=== PATIENT | female | born 1955 | race Caucasian/White ===

== ENCOUNTER 2017-06-11 11:10 | Inpatient (IN) | END 2017-06-15 18:48 | disposition home or self-care (01) | DRG 387 ==

== ENCOUNTER 2017-08-26 04:05 | Inpatient (IN) | END 2017-08-31 17:20 | disposition home or self-care (01) | DRG 385 ==

== ENCOUNTER 2017-12-22 07:44 | Emergency (ER) | END 2017-12-22 14:12 | disposition home or self-care (01) ==

== ENCOUNTER 2018-04-08 14:25 | Observation (INO) | END 2018-04-10 16:29 | disposition home or self-care (01) ==

== ENCOUNTER 2018-05-19 06:35 | Emergency (ER) | payer OTHER ==
[~2018-05-19] VITALS: Ht 160 cm; Wt 66.4 kg
[~2018-05-19 06:35] MED LIST: ALBU8.5H8 INH; ATRO INHALATION; GUAI5SYR2 PO; MESA0.372 PO; PRED20TA PO
[2018-05-19 07:05] VITALS: Ht 160 cm; Wt 66.4 kg
--- NOTE | 2018-05-19 08:57 | ERD ---
ER Documentation Chief Complaint Chief Complaint R 89, fr home, sob & palpitation this am, denies chest pain HPI Patient is a 62-year-old female with no medical problems who presents with palpitations. The patient was brought in by ambulance. She felt palpitations this morning and shortness of breath. She denies pain. She was started on antibiotics on Wednesday. She has had a small cough. She has no fevers. Upon review of old medical records this is the patient's fifth visit to the ER since June 2017. She does not know the name of her primary doctor. ROS All systems reviewed and are negative except as per history of present illness. Medications Home Meds Active Scripts Albuterol Sulfate* (Proair HFA*) 8.5 Gm Hfa.aer.ad, 2 PUFF INH Q6H PRN for WHEEZING AND SOB, #1 INHALER 5 Refills Prov:BRUCE BERMUDEZ MD 04/10/18 Reported Medications Ipratropium [place]* (Atrovent HFA*) 12.9 Gm Aer.w.adap, 2 PUFF INHALATION Q12 PRN for WHEEZING AND SOB, #1 INHALER 12/22/17 Mesalamine* (Apriso*) 0.375 Gm Cap.sr.24h, 1.5 MG PO QAM, #360 TAKE 4 CAPSULE BY MOUTH EVERY MORNING 08/26/17 Discontinued Scripts Guaifenesin-Dextromethorphan* (Robitussin* DM) 100MG/10MG/5ML Syrup, 10 ML PO Q6H PRN for COUGH for 14 Days, #1 ML Prov:BRUCE BERMUDEZ MD 04/10/18 Prednisone* (Prednisone*) 20 Mg Tab, 40 MG PO DAILY for 4 Days, TAB Prov:BETSEY LOPEZ MD 12/22/17 Allergies Allergies: Coded Allergies: Penicillins (Unverified Allergy, Unknown, 05/19/18) PMhx/Soc History of Surgery: Yes (CHOLECYSTECTOMY, CESEAREAN SECTION, HAND SURGERY) Anesthesia Reaction: No Hx Neurological Disorder: No Hx Respiratory Disorders: No Hx Cardiac Disorders: No Hx Psychiatric Problems: No Hx Miscellaneous Medical Probl: Yes (COLITIS) Hx Alcohol Use: No Hx Substance Use: No Hx Tobacco Use: No FmHx Family History: No diabetes Physical Exam Vitals Vital Signs Date Temp Pulse Resp B/P (MAP) Pulse Ox O2 O2 Flow FiO2 Time Delivery Rate 05/19/18 Nasal 2 07:30 Cannula 05/19/18 98.5 87 16 116/71 98 Room Air 07:17 (86) 05/19/18 97.9 82 18 158/78 93 07:05 (104) Physical Exam Const: No acute distress Head: Atraumatic Eyes: Normal Conjunctiva ENT: Normal External Ears, Nose and Mouth. Neck: Full range of motion. No meningismus. Resp: Clear to auscultation bilaterally Cardio: Regular rate and rhythm, no murmurs Abd: Soft, non tender, non distended. Normal bowel sounds Skin: No petechiae or rashes Back: No midline or flank tenderness Ext: No cyanosis, or edema Neur: Awake and alert Psych: Normal Mood and Affect Result Diagram: 05/19/1870605/19/18706 Results 24 hrs Laboratory Tests Test 05/19/18 07:07 White Blood Count 10.6 10^3/ul Red Blood Count 5.72 10^6/ul Hemoglobin 16.3 g/dl Hematocrit 48.5 % Mean Corpuscular Volume 84.8 fl Mean Corpuscular Hemoglobin 28.5 pg Mean Corpuscular Hemoglobin Concent 33.6 g/dl Red Cell Distribution Width 13.2 % Platelet Count 311 10^3/UL Mean Platelet Volume 12.0 fl Immature Granulocytes % 0.300 % Neutrophils % 61.9 % Lymphocytes % 25.2 % Monocytes % 5.0 % Eosinophils % 6.8 % Basophils % 0.8 % Nucleated Red Blood Cells % 0.0 /100WBC Immature Granulocytes # 0.030 10^3/ul Neutrophils # 6.6 10^3/ul Lymphocytes # 2.7 10^3/ul Monocytes # 0.5 10^3/ul Eosinophils # 0.7 10^3/ul Basophils # 0.1 10^3/ul Nucleated Red Blood Cells # 0.0 10^3/ul Sodium Level 144 mmol/L Potassium Level 3.9 mmol/L Chloride Level 106 mmol/L Carbon Dioxide Level 26 mmol/L Anion Gap 12 Blood Urea Nitrogen 11 mg/dl Creatinine 0.73 mg/dl Est Glomerular Filtrat Rate mL/min > 60 mL/min Glucose Level 100 mg/dl Calcium Level 9.8 mg/dl Magnesium Level 2.0 mg/dl Troponin I < 0.012 ng/ml Thyroid Stimulating Hormone (TSH) 0.753 MIU/L Free Thyroxine 1.49 ng/dl [facility] EKG read by me: Rate/Rhythm: Regular rate and rhythm at a normal rate Intervals: Normal Impression: No evidence of ischemia or arrhythmia Chest x-ray negative per radiology. Patient is a 62-year-old female presents with palpitations and shortness of breath. Laboratory studies were normal. Chest x-ray was negative. EKG was normal. At this point I doubt acute coronary syndrome, pneumonia, pneumothorax, pulmonary embolism, or aortic dissection. I doubt cardiac arrhythmia. I believe outpatient management is appropriate but she will need close follow-up with her primary doctor within 1 week. She can return for any worsening symptoms. Departure Diagnosis: Primary Impression: Palpitations Additional Impression: Shortness of breath Condition: Fair Patient Instructions: Palpitations Referrals: Your doctor Additional Instructions: Llame al doctor negar dobson (Referral Sources) MAANA y puja ashok ДМИТРИЙ PARA DENTRO DE ASHOK SEMANA. Dgale a la secretaria que nosotros le instruimos hacer esta дмитрий.Avise o llame si sims condicin se empeora antes de la дмитрий. JUAN J MARTINEZ MD May 19, 2018 08:57
[2018-05-19 10:00] VITALS: BP 135/78; PULSE 76; RESP 20
== END 2018-05-19 10:11 | disposition home or self-care (01) ==
LOC: E/R 06:35
DX: R00.2 Palpitations (principal); R40.2142 Coma scale, eyes open, spontaneous, at arrival to emergency department; R40.2362 Coma scale, best motor response, obeys commands, at arrival to emergency department; R40.2252 Coma scale, best verbal response, oriented, at arrival to emergency department
CPT/HCPCS: 36415; 71045; 80048; 83735; 84439; 84443; 84484; 85025; 93005; Z7502

== ENCOUNTER 2018-09-13 16:45 | Emergency (ER) | payer OTHER ==
[~2018-09-13] VITALS: Ht 152.4 cm; Wt 63.3 kg
[~2018-09-13 16:45] MED LIST changes: -GUAI5SYR2 PO; -PRED20TA PO
[2018-09-13 16:51] VITALS: Ht 152.4 cm; Wt 63.3 kg
--- NOTE | 2018-09-13 17:48 | ERD ---
ER Documentation Chief Complaint Chief Complaint FEELS ANXIOUS HPI 63-year-old female, with history of anxiety in a long-term treatment with lorazepam 1 g twice daily, presents the emergency department, complaining of 1 day with worsening of anxiety after her primary doctor abruptly discontinued the lorazepam and started escitalopram 10 mg daily. The patient denies chest pain, no shortness of breath no palpitations, but she feels very anxious and she was not able to sleep last night. ROS All systems reviewed and are negative except as per history of present illness. Medications Home Meds Active Scripts Lorazepam* (Lorazepam*) 1 Mg Tablet, 1 MG PO Q8H PRN for ANXIETY, #15 TAB Prov:JAZMYN LOUIS MD 09/13/18 Albuterol Sulfate* (Proair HFA*) 8.5 Gm Hfa.aer.ad, 2 PUFF INH Q6H PRN for WHEEZING AND SOB, #1 INHALER 5 Refills Prov:BRUCE BERMUDEZ MD 04/10/18 Reported Medications Ipratropium [place]* (Atrovent HFA*) 12.9 Gm Aer.w.adap, 2 PUFF INHALATION Q12 PRN for WHEEZING AND SOB, #1 INHALER 12/22/17 Mesalamine* (Apriso*) 0.375 Gm Cap.sr.24h, 1.5 MG PO QAM, #360 TAKE 4 CAPSULE BY MOUTH EVERY MORNING 08/26/17 Allergies Allergies: Coded Allergies: Penicillins (Unverified Allergy, Unknown, 09/13/18) PMhx/Soc History of Surgery: Yes (CHOLECYSTECTOMY, CESEAREAN SECTION, HAND SURGERY) Anesthesia Reaction: No Hx Neurological Disorder: No Hx Respiratory Disorders: No Hx Cardiac Disorders: No Hx Psychiatric Problems: No Hx Miscellaneous Medical Probl: Yes (COLITIS) Hx Alcohol Use: No Hx Substance Use: No Hx Tobacco Use: No FmHx Family History: No diabetes, No coronary disease Physical Exam Vitals Vital Signs Date Temp Pulse Resp B/P (MAP) Pulse Ox O2 O2 Flow FiO2 Time Delivery Rate 09/13/18 98.1 66 22 159/67 96 Room Air 19:03 (97) 09/13/18 98.0 69 19 169/77 96 16:51 (107) Physical Exam Const: Patient looks anxious. Head: Atraumatic Eyes: Normal Conjunctiva ENT: Normal External Ears, Nose and Mouth. Neck: Full range of motion. No meningismus. Resp: Clear to auscultation bilaterally Cardio: Regular rate and rhythm, no murmurs Abd: Soft, non tender, non distended. Normal bowel sounds Skin: No petechiae or rashes Back: No midline or flank tenderness Ext: No cyanosis, or edema Neur: Awake and alert Psych: Normal Mood and Affect Results 24 hrs Current Medications Medications Dose Sig/Margarita Start Time Status Last (Trade) Ordered Route PRN Stop Time Admin Dose Reason Admin Lorazepam 2 mg ONCE ONCE 09/13/18 DC 09/13/18 (Ativan) PO 18:00 09/13/18 17:57 18:02 Procedures/MDM Differential diagnosis include but not limited to: Depression, anxiety, migraine, thyroid disease, electrolyte imbalance. Low suspicion for acute coron luc event, aortic dissection, CVA. Physical examination and clinical presentation consistent most likely with anxiety. During the ED course the patient remained stable, no new complaints. The patient received treatment with lorazepam presenting overall improvement of the symptoms. Clinical impression discussed with patient who agrees with management. The patient is stable to be treated outpatient and will be discharged home with a Rx for lorazepam, some side effects of prescribed medications (headache, rash, nausea, vomiting, diarrhea, drowsiness, habituation, bleeding, hypertension, interactions with other medications) were reviewed. The patient was instructed to follow up with the primary care provider in the next 48h. If symptoms persist, worsen or new symptoms develop, then patient should return to the ED immediately. Instructions explained and given directly by me to the patient with acknowledgment and demonstrated understanding. Disclaimer: Inadvertent spelling and grammatical errors are likely due to EHR/dictation software use and do not reflect on the overall quality of patient care. Also, please note that the electronic time recorded on this note does not necessarily reflect the actual time of the patient encounter. Departure Diagnosis: Primary Impression: Anxiety Condition: Stable Patient Instructions: Your Body's Response to Anxiety Additional Instructions: Muchas martinez por [facility] para sims servicio. Esperamos que en sims visita a la radames de emergencia sims problema medico haya sido solucionado y que se sienta mucho mejor. Para estar seguros que sims mejoria sigue en proceso, le pedimos el favor de hacer ashok arash de seguimiento medico con sims doctor primario en los proximos 2-4 temple. Lleve con usted estos documentos y las medicinas recetadas. Si daniela sintomas empeoran, NO SE ESPERE, por favor regrese a radames de emergencia INMEDIATAMENTE. En kiko que usted no tenga un mdico de atencin primaria: Llame al mdico o clnica comunitaria de referencia que aparece abajo bertha las horas de consultorio para hacer ashok arash para que le vean. CLINICAS: [facility] [phone] [id number] [facility] [phone] [facility] [phone] [facility] [phone] [facility] [phone] [address] [facility]. [phone] JAZMYN DEGROOT MD September 13, 2018 17:48
[2018-09-13] MEDS ORDERED: LORAZEPAM 1 MG TAB PO ONE (18:00)
[2018-09-13] MEDS ORDERED: LORA1TAB PO (18:57)
[2018-09-13 19:03] VITALS: BP 159/67; PULSE 66; RESP 22
== END 2018-09-13 19:06 | disposition home or self-care (01) ==
LOC: FTE 16:45
DX: F41.9 Anxiety disorder, unspecified (principal)
CPT/HCPCS: Z7502; Z7610; 99283

== ENCOUNTER 2018-10-24 15:59 | Emergency (ER) | payer OTHER ==
[~2018-10-24] VITALS: Ht 162.6 cm; Wt 62.6 kg
[~2018-10-24 15:59] MED LIST changes: +LORA1TAB PO
[2018-10-24 16:22] VITALS: Ht 162.6 cm; Wt 62.6 kg
[2018-10-24] MEDS ORDERED: KETOROLAC 15 MG INJ IV STA (18:03)
[2018-10-24] MEDS ORDERED: SOD CHLORIDE 0.9% 500 ML IV STA (18:03)
--- NOTE | 2018-10-24 18:03 | ERD ---
ER Documentation Chief Complaint Chief Complaint CHEST PAIN X3 DAYS, RADIATING TO SHOULDERS HPI 63-year-old woman complaining of palpitations left-sided chest pain x3 days, she also complains of right shoulder pain. She has had similar symptoms in the past and does admit to having anxiety, uses low-dose lorazepam daily without relief of her symptoms. She denies cough, no fevers or chills, no shortness of breath, no headache or blurry vision. Patient states the chest pain is sharp nonexertional nonradiating. ROS All systems reviewed and are negative except as per history of present illness. Medications Home Meds Active Scripts Naproxen* (Naprosyn*) 500 Mg Tablet, 500 MG PO BID PRN for PAIN AND/OR INFLAMMATION, #30 TAB Prov:BETSEY LOPEZ MD 10/24/18 Lorazepam* (Lorazepam*) 1 Mg Tablet, 1 MG PO Q8H PRN for ANXIETY, #15 TAB Prov:JAZMYN LOUIS MD 09/13/18 Albuterol Sulfate* (Proair HFA*) 8.5 Gm Hfa.aer.ad, 2 PUFF INH Q6H PRN for WHEEZING AND SOB, #1 INHALER 5 Refills Prov:BRUCE BERMUDEZ MD 04/10/18 Reported Medications Ipratropium [place]* (Atrovent HFA*) 12.9 Gm Aer.w.adap, 2 PUFF INHALATION Q12 PRN for WHEEZING AND SOB, #1 INHALER 12/22/17 Mesalamine* (Apriso*) 0.375 Gm Cap.sr.24h, 1.5 MG PO QAM, #360 TAKE 4 CAPSULE BY MOUTH EVERY MORNING 08/26/17 Allergies Allergies: Coded Allergies: Penicillins (Unverified Allergy, Unknown, 09/13/18) PMhx/Soc Anxiety History of Surgery: Yes (CHOLECYSTECTOMY, CESEAREAN SECTION, HAND SURGERY) Anesthesia Reaction: No Hx Neurological Disorder: No Hx Respiratory Disorders: No Hx Cardiac Disorders: No Hx Psychiatric Problems: No Hx Miscellaneous Medical Probl: Yes (COLITIS) Hx Alcohol Use: No Hx Substance Use: No Hx Tobacco Use: No FmHx Family History: No diabetes Physical Exam Vitals Vital Signs Date Temp Pulse Resp B/P (MAP) Pulse Ox O2 O2 Flow FiO2 Time Delivery Rate 10/24/18 97.7 26 22 115/67 96 Room Air 20:00 (83) 10/24/18 72 16 132/72 96 Room Air 19:17 (92) 10/24/18 98.2 88 18 133/67 98 Room Air 17:45 (89) 10/24/18 98.2 73 18 133/67 95 16:22 (89) Physical Exam Const: Anxious in appearance, well-developed well-nourished Resp: Clear to auscultation bilaterally Cardio: Regular rate and rhythm, no murmurs Abd: Soft, non tender, non distended. Normal bowel sounds Neur: Awake and alert x3, no focal deficits or facial asymmetry Psych: Appears anxious, afebrile Result Diagram: 10/24/18 1838 10/24/18 1838 Results 24 hrs Laboratory Tests Test 10/24/18 18:03 10/24/18 18:36 10/24/18 18:38 Blood Gas Specimen Source Blood arterial Arterial Blood Date Drawn 10/24/2018 6:10:23 PM Arterial Blood pH 7.458 (Temp corrected) Arterial Blood pCO2 36.5 mmhg (Temp correct) Arterial Blood pO2 68.0 mmHG (Temp corrected) Arterial Blood HCO3 25.3 mmol/L Arterial Blood Base Excess 1.7 mmol/L Arterial Blood 93.0 mmHG Oxygen Saturation Cristopher Test ACCEPTAB Arterial Blood Gas Left Radial Puncture Site Arterial 0.4 % Blood Carboxyhemoglobin Arterial Blood 0.2 % Methemoglobin Blood Gas A-a O2 38.0 mmHg Differential Oxyhemoglobin Percent 92.4 % Blood Gas Temperature 37.0 C Blood Gas Modality ROOM AIR FiO2 21.0 % Blood Gas Notified Whom Eriberto [facility] Blood Gas Notified Time 10/24/2018 6:17:49 PM Troponin I < 0.012 ng/ml White Blood Count 12.4 10^3/ul Red Blood Count 5.02 10^6/ul Hemoglobin 14.6 g/dl Hematocrit 43.5 % Mean Corpuscular Volume 86.7 fl Mean Corpuscular 29.1 pg Hemoglobin Mean Corpuscular 33.6 g/dl Hemoglobin Concent Red Cell Distribution 12.7 % Width Platelet Count 293 10^3/UL Mean Platelet Volume 11.0 fl Immature Granulocytes % 0.400 % Neutrophils % 57.2 % Lymphocytes % 32.4 % Monocytes % 6.3 % Eosinophils % 3.1 % Basophils % 0.6 % Nucleated Red Blood Cells 0.0 /100WBC % Immature Granulocytes # 0.050 10^3/ul Neutrophils # 7.1 10^3/ul Lymphocytes # 4.0 10^3/ul Monocytes # 0.8 10^3/ul Eosinophils # 0.4 10^3/ul Basophils # 0.1 10^3/ul Nucleated Red Blood Cells 0.0 10^3/ul # Sodium Level 140 mmol/L Potassium Level 4.0 mmol/L Chloride Level 106 mmol/L Carbon Dioxide Level 26 mmol/L Anion Gap 8 Blood Urea Nitrogen 18 mg/dl Creatinine 0.80 mg/dl Est Glomerular Filtrat > 60 mL/min Rate mL/min Glucose Level 102 mg/dl Calcium Level 9.2 mg/dl Current Medications Medications Dose Sig/Margarita Start Time Status Last (Trade) Ordered Route PRN Stop Time Admin Dose Reason Admin Sodium 500 ml @ Q1H STAT 10/24/18 DC 10/24/18 Chloride 500 mls/hr IV 18:03 18:55 10/24/18 19:02 Ketorolac 15 mg ONCE STAT 10/24/18 DC 10/24/18 Tromethamine IV 18:03 18:55 (Toradol) 10/24/18 18:05 Lorazepam 0.5 mg ONCE ONCE 10/24/18 DC 10/24/18 (Ativan) IV 18:30 18:55 10/24/18 18:31 Procedures/MDM IV line was established patient was placed on radiation monitor rhythm strip revealed a sinus rhythm at about 80 bpm with upright P and T waves. Patient was afebrile EKG performed, read by me: 85 bpm, normal sinus rhythm, normal axis, no acute ST segment changes, narrow QRS complex, with good R-wave progression in precordial leads. ABG on room air performed, read by me revealed a pH of 7.46, PCO2 37, PO2 68. Mild respiratory alkalosis consistent with anxiety. One AP view of the chest performed, read by me reveals no acute infiltrates, normal mediastinum, sharp costophrenic and cardiac borders, no air under the diaphragm. Otherwise unremarkable chest x-ray. I administered 500 cc normal saline IV, Toradol 15 mg IV, lorazepam 0.5 mg IV x1 CBC and electrolytes were normal, troponin was negative Differential diagnoses considered, included but not limited to acute coronary syndrome, pulmonary embolism, aortic dissection, abdominal aortic aneurysm, sepsis, stroke, meningitis, encephalitis, pneumonia, appendicitis, cholecystitis, bowel obstruction, pyelonephritis, nephrolithiasis, cystitis, as well as metabolic, hematologic, and electrolyte abnormalities. As well as abscess, cellulitis, fractures, and dislocations. Patient feels much better at this time, and vital signs are normal, symptoms have improved. I did give strict instructions to return to the ED if symptoms continue or worsen, patient will otherwise follow-up with primary care physician. Patient understood instructions and agreed to plan. Disclaimer: Inadvertent spelling and grammatical errors are likely due to EHR/dictation software use and do not reflect on the overall quality of patient care. Also, please note that the electronic time recorded on this note does not necessarily reflect the actual time of the patient encounter. Departure Diagnosis: Primary Impression: Chest pain Chest pain type: unspecified Qualified Codes: R07.9 - Chest pain, unspecified Additional Impressions: Palpitations Acute anxiety Condition: Good BETSEY LOPEZ MD Oct 24, 2018 18:03
[2018-10-24] MEDS ORDERED: LORAZEPAM 2 MG INJ IV ONE (18:30)
[2018-10-24] MEDS ORDERED: NAPR-985 PO (19:19)
[2018-10-24 20:00] VITALS: BP 115/67; PULSE 26; RESP 22
== END 2018-10-24 20:07 | disposition home or self-care (01) ==
LOC: E/R 15:59
DX: R07.9 Chest pain, unspecified (principal); R00.2 Palpitations; F41.9 Anxiety disorder, unspecified
CPT/HCPCS: 36415; 36600; 71045; 80048; 82803; 84484; 85025; 93005; 96374; 96375; J1885; J2060; J7040; Z7502; Z7610